=== PATIENT | male | born 1965 | race Caucasian/White ===

== ENCOUNTER → 2018-03-16 16:12 | Outpatient (CLI) | payer OTHER, SELFPAY ==
[2018-03-16 20:13] LABS: Urine N gonorrhoeae NOT DETECTED
[2018-03-16 21:26] LABS: Urine Chlamydia NOT DETECTED
== END ==
PROVIDERS: PCP Student in an Organized Health Care Education/Training Program; Visit Provider Physician Assistant
DX: R36.1 Hematospermia (principal)
CPT/HCPCS: 87491; 87591

== ENCOUNTER → 2018-04-07 07:10 | Outpatient (CLI) | payer OTHER, SELFPAY ==
[2018-04-07 08:44] LABS: Add Manual Diff / Slide Review NO; Basophils Percent Auto 0.8 % (0-2); Eosinophils Percent Auto 1.7 % (2-4); Hematocrit 40.1 % (41-53); Hemoglobin 13.8 g/dL (13.5-17.5); Lymphocytes Percent Auto 33.8 % (25-40); Mean Corpuscular HGB Conc 34.4 % (30-36); Mean Corpuscular Hemoglobin 31.2 PG (26-34); Mean Corpuscular Volume 90.9 fL (80-100); Monocytes Percent Auto 7.8 % (3-14); Neutrophils Absolute Auto 3400 /uL (3000-5900); Neutrophils Percent Auto 55.9 % (50-75); Platelet Count 259 X10^3/uL (150-400); Red Blood Cell Count 4.41 X10^6/uL (4.5-5.9); Red Cell Distribution Width 12.9 % (11.6-14.8); White Blood Cell Count 6.2 X10^3/uL (4.5-11.0)
[2018-04-07 09:57] LABS: Cholesterol 165 mg/dL (140-199); HDL Cholesterol 48 mg/dL (40-60); LDL Cholesterol Calculated 107 mg/dL (<100); Triglycerides 51 mg/dL (35-150)
[2018-04-07 10:06] LABS: Vitamin D 25 Hydroxy (D3) 43.4 ng/mL (30.0-100.0)
[2018-04-07 10:22] LABS: TSH w/ Reflex to FT4 2.61 uIU/mL (0.47-4.68)
== END ==
PROVIDERS: PCP Student in an Organized Health Care Education/Training Program; Visit Provider Student in an Organized Health Care Education/Training Program
DX: R36.1 Hematospermia (principal); Z13.220 Encounter for screening for lipoid disorders; E55.9 Vitamin D deficiency, unspecified
CPT/HCPCS: 36415; 80061; 82306; 84153; 84443; 85025

== ENCOUNTER 2018-07-31 07:44 | Day surgery (SDC) | payer OTHER, SELFPAY ==
--- NOTE | 2018-07-31 | PATH_ITS ---
[facility] Accession Number: [id number] . 01 Material submitted: . SIGMOID POLYP AT 25CM . 02 Diagnosis: Biopsy, Polyp Sigmoid Colon at 25 cm: Hyperplastic polyp. MRV/08/01/2018 . 02 Electronically signed: . Caesar Mcmahon MD, Pathologist NPI- [id number] . 01 Gross description: . Received one formalin-filled container labeled with the patient's name and labeled sigmoid polyp at 25 cm. The specimen consists of a 0.5 cm portion of tissue, entirely submitted in one cassette. ([id number]) /FRR . 02 Pathologist provided ICD-10: K63.5 . 02 CPT . 881001 Performed at: 01 [facility] [address] [id number] MD Elliott Mart MD Phone: [phone] Performed at: 02 [facility] [address] [place], [place] [id number] MD Magaly Perez MD Phone: [phone]
[2018-07-31 08:29] VITALS: BP 122/83; PULSE 74; RESP 15; TEMP 36.6; O2SAT 98; BMI 28.5
[2018-07-31] MEDS: SODIUM CHLORIDE 0.9% 1,000 ML 200 ML IV (08:38)
--- NOTE | 2018-07-31 09:31 | PM.HP.1 ---
History of Present Illness Date Patient Seen: 07/31/18 Time Patient Seen: 09:31 Chief complaint: 83138 SCREENING COLONOSCOPY Narrative: 52-year-old male who presents for colorectal screening. He has no new recent gastrointestinal symptoms. Denies any nausea, vomiting, abdominal pain, loss of appetite, unexplained weight loss, change in bowel habits, diarrhea, constipation, melena, hematochezia, and bright red blood per rectum. Patient History Medical History Plantar warts (Resolved 1989) Skin cancer (Resolved 2011) Hemorrhoid (Acute) Skin cancer (Acute) Plantar warts (Inactive ~1989) Surgical History Hx of shoulder surgery (Resolved 2015) History of colonoscopy (Acute) History of placement of ear tubes (Acute) Family History Father No problems noted. Mother No problems noted. Social History household members: spouse Smoking Status: Never smoker alcohol intake: current Family & Social History Family History Father No problems noted. Mother No problems noted. Social History: household members spouse Tobacco & Substance use: Smoking Status Never smoker alcohol intake current Meds Home Medications Medication Instructions Recorded Confirmed Type glucosamine HCl 1 tab PO DAILY 03/24/18 07/31/18 History ibuprofen 600 mg tablet 600 mg PO DAILY PRN tab 03/24/18 07/31/18 History lactobacillus combination no.8 1 cap PO DAILY 03/24/18 07/31/18 History multivitamin tablet 1 tab PO DAILY 03/24/18 07/31/18 History sildenafil 25 mg PO DAILY PRN 07/31/18 07/31/18 History Allergies Allergy/AdvReac Type Severity Reaction Status Date / Time No Known Drug Allergies Allergy Verified 07/31/18 08:25 Review of Systems Review of Systems All systems reviewed & are unremarkable except as noted in HPI and below Exam Vital Signs (past 8 hours): - 07/31/18 08:29 Temperature 97.8 F Pulse Rate 74 Respiratory Rate 15 Blood Pressure 122/83 Pulse Oximetry 98 Oxygen Delivery Method Room Air Narrative Exam Narrative: Well-nourished well-developed male in no acute distress. Alert oriented x3. Sclera nonicteric Regular rate rhythm No wheezes Abdomen soft, nondistended, nontender Extremities show no clubbing or cyanosis Objective Labs Labs: No recent laboratory or radiographic studies for review Assessment & Plan Assessment & Plan narrative: 52-year-old male requiring colorectal screening by age criteria. He actually had a colonoscopy 10 years ago for rectal bleeding which was normal other than some minimal hemorrhoid disease requiring no further intervention. Colonoscopy is once again recommended today. Technical details of the procedure were discussed. Risks, benefits, alternatives were explained. Risks including but not limited to sedation, aspiration, bleeding, pain, missed lesion, incomplete examination, need for further radiographic studies, colonic perforation, need for major abdominal surgery, and all attendant risks of major surgery were explained in detail. All questions were answered to his satisfaction, and he voiced understanding. Consent was placed on the chart. We will proceed as above.
--- NOTE | 2018-07-31 09:34 | PM.PREOP ---
Pre-operative Note Interval Note History & Physical reviewed/Exam performed by Physician: Yes Changes to H&P: No H&P completed within 30 days and has changed as indicated here:: Patient seen and examined. History and physical examination placed on the chart today. Obviously, there have been no changes in the last 15 min. Proceed with colonoscopy today as planned. ASA Class (for procedural sedation): I
[2018-07-31] MEDS: fentaNYL 250 MCG/5 ML INJ IV (09:52)
[2018-07-31] MEDS: MIDAZOLAM 5 MG/5 ML VIAL IV (09:53)
--- NOTE | 2018-07-31 10:02 | PM.OP.ENDO ---
Operative Date/Time/Diagnoses Date of procedure: 07/31/18 Time of procedure: 10:02 Pre-op diagnosis: Colorectal screening Post-op diagnosis: other (Diverticulosis and sigmoid colon polyp) Procedure & Clinicians Study performed: 1. Sedation per surgeon 2. Colonoscopy with cold forceps polypectomy Same procedure as scheduled: Yes Indications: 52-year-old male who presents for colorectal screening. Colonoscopy is currently recommended. Surgeon: Devonte Calderon Procedure Notes SCOAP/Timeout: Yes Procedure in detail: After obtaining informed consent, the patient was brought to the GI suite and placed in the left lateral decubitus position on the examination table. After placement of appropriate monitors, the patient was given incremental doses of Versed and Fentanyl until an appropriate level of sedation was achieved. A time out was held per SCOAP protocol. A digital rectal examination was performed and did not reveal any masses or obstructing lesions. The colonoscope was gently passed into the patient's anus and the entire colon navigated to the level of the cecum with minimal difficulty. Terminal ileum was intubated and noted to be grossly normal. Once in the cecum, the scope was withdrawn being sure to go before and beyond all mucosal folds and prominences and get an excellent examination. The findings are noted above. At the level of the rectal vault, the scope was retroflexed and the internal anal canal was examined. The scope was straightened and air aspirated from the colon. The instrument was removed from the patient's body and the procedure was concluded. The patient was allowed to awaken from sedation without difficulty and taken to the post-anesthesia care unit in good condition. Scope withdrawal time: 12:28 min Sedation minutes: 22 Findings: diverticulosis and polyp Specimen(s): other (Sigmoid colon polyp at 25 cm) Complications: none Recommendations: Colonscopy in 5 years, High fiber diet and Will call with biopsy results Follow up: as needed Disposition: PACU
[2018-07-31 10:06] VITALS: BP 122/83; PULSE 64; RESP 14; TEMP 36.6; O2SAT 98
[2018-07-31 10:11] VITALS: BP 123/78; PULSE 76; RESP 12; O2SAT 97
[2018-07-31 10:16] VITALS: BP 116/77; PULSE 60; RESP 10; O2SAT 98
[2018-07-31 10:34] VITALS: BP 106/71; PULSE 62; RESP 15; TEMP 36.3; O2SAT 98
== END 2018-07-31 10:45 | disposition home or self-care (01) ==
PROVIDERS: PCP Student in an Organized Health Care Education/Training Program; Visit Provider Surgery
PROC: 0DJD8ZZ Inspection of Lower Intestinal Tract, Via Natural or Artificial Opening Endoscopic (ICD-10-PCS; CPT 45378; principal; 2018-07-31 09:45)
DX: Z12.11 Encounter for screening for malignant neoplasm of colon (principal); K57.30 Diverticulosis of large intestine without perforation or abscess without bleeding; D12.5 Benign neoplasm of sigmoid colon; K63.5 Polyp of colon
CPT/HCPCS: 45380; 99152; J2250; J3010

== ENCOUNTER → 2019-02-23 07:06 | Outpatient (CLI) | payer OTHER, SELFPAY ==
[2019-02-23 08:01] LABS: BUN Creatinine Ratio 18.9 (6-22); Blood Urea Nitrogen 17 mg/dL (9-20); Calcium 9.8 mg/dL (8.4-10.2); Carbon Dioxide 30 mmol/L (22-32); Chloride 102 mmol/L (98-107); Cholesterol 171 mg/dL (140-199); Estimated Glomerular Filt Rate > 60.0 mL/min (>60); Glucose 94 mg/dL (70-100); HDL Cholesterol 52 mg/dL (40-60); HEMOLYSIS < 15 (0-50); LDL Cholesterol Calculated 99 mg/dL (<100); Potassium 4.5 mmol/L (3.4-5.1); Sodium 138 mmol/L (137-145); Triglycerides 101 mg/dL (35-150)
== END ==
PROVIDERS: PCP Student in an Organized Health Care Education/Training Program; Visit Provider Student in an Organized Health Care Education/Training Program
DX: E78.2 Mixed hyperlipidemia (principal); Z79.1 Long term (current) use of non-steroidal anti-inflammatories (NSAID)
CPT/HCPCS: 36415; 80048; 80061

== ENCOUNTER 2023-07-15 13:53 | Emergency (ER) | payer OTHER, SELFPAY ==
[2023-07-15] VITALS (7 sets, daily range): BP systolic 152–198; BP diastolic 92–99; PULSE 62–75; RESP 16–33; TEMP 36.6; O2SAT 95–99; BMI 29.8
--- NOTE | 2023-07-15 14:10 | DI.CT.S_ITS ---
PROCEDURE: CT HEAD/BRAIN WO CON INDICATIONS: fall with head injury TECHNIQUE: Noncontrast 4.5 mm thick angled axial sections acquired from the foramen magnum to the vertex, with coronal and sagittal reformats. For radiation dose reduction, the following was used: automated exposure control, adjustment of mA and/or kV according to patient size. COMPARISON: [facility], CT, CT CERVICAL SPINE WO CON, 07/15/2023, 14:39. FINDINGS: Image quality: Mild streak artifact can be seen through the skull base. CSF spaces: Basal cisterns are patent. No extra-axial fluid collections. Ventricles are normal in size and shape. Brain: No midline shift. No intracranial masses or hemorrhage. Willoughby-white matter interface is normal. Skull and face: Calvarium and visualized facial bones are intact, without suspicious lesions. Sinuses: Visualized sinuses and mastoids are clear. IMPRESSION: No acute intracranial hemorrhage is seen. No acute intracranial process is seen. Dictated by: Berlin Ortega M.D. on 07/15/2023 at 13:46 Approved by: Berlin Ortega M.D. on 07/15/2023 at 13:47
--- NOTE | 2023-07-15 14:10 | DI.CT.S_ITS ---
PROCEDURE: CT CERVICAL SPINE WO CON INDICATIONS: fall with head injury TECHNIQUE: Noncontrast 3 mm thick sections acquired from the skull base to the T4 level. Sagittal and coronal reformats were then constructed. For radiation dose reduction, the following was used: automated exposure control, adjustment of mA and/or kV according to patient size. COMPARISON: [facility], CT, CT HEAD/BRAIN WO CON, 07/15/2023, 14:39. FINDINGS: Image quality: This examination is somewhat limited by quantum mottle artifact. Bones: No fractures or dislocations. Visualized superior ribs are intact. Focal degenerative change is seen involving the C1-C2 interface anteriorly. There is moderate disc space narrowing seen at C5-C6, with associated vacuum disc phenomenon. Mild posteriorly directed endplate osteophytes can be seen at C5-C6. Several levels of bridging anterior osteophytes can be seen, from C3 through C7. There is overall straightening of the normal cervical lordosis. Soft tissues: Prevertebral soft tissues are normal in thickness. No paravertebral hematomas. No apical pneumothoraces. IMPRESSION: Negative for acute cervical spine fracture. Cervical spine degenerative changes are seen, which are overall worst at C5-C6. Dictated by: Berlin Ortega M.D. on 07/15/2023 at 13:47 Approved by: Berlin Ortega M.D. on 07/15/2023 at 13:49
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
--- NOTE | 2023-07-15 14:32 | DI.MRI.S_ITS ---
PROCEDURE: MR CERVICAL SPINE WO CON INDICATIONS: fall with tingling bilateral arms TECHNIQUE: Noncontrast sagittal T1 spin echo and T2 fast spin echo, sagittal STIR, foraminal oblique sagittal T2 fast spin echo, and axial gradient echo or T2 fast spin echo through the cervical spine. COMPARISON: None. FINDINGS: Image quality: Excellent. Alignment and Curvature: There is normal bony alignment. Craniovertebral relationships are normal Bone Marrow: Marrow demonstrates normal overall signal. Spinal Cord: Visualized spinal cord has normal size and signal. No cerebellar tonsillar herniation. Paraspinous Soft Tissues: No paravertebral masses. Prevertebral soft tissues are normal in thickness. At the disc levels, there is disc space narrowing and posterior disc osteophyte complex in the mid cervical spine. Mild to moderate central stenosis C5-6 and mild central stenosis C6-7. Hypertrophic uncovertebral joint associated with severe bilateral foraminal stenosis C5-6 IMPRESSION: No evidence of fracture or ligamentous injury. Craniovertebral relationships are normal. Chronic degenerative disc disease and arthropathy in the mid cervical spine results in severe bilateral foraminal stenosis C5-6 Approved by: Marcus Tucker M.D. on 07/15/2023 at 14:42
== END 2023-07-15 16:20 | disposition home or self-care (01) ==
PROVIDERS: Emergency Provider Emergency Medicine; PCP Family Medicine
DX: S16.1XXA Strain of muscle, fascia and tendon at neck level, initial encounter (principal); S00.81XA Abrasion of other part of head, initial encounter; S09.90XA Unspecified injury of head, initial encounter; W17.89XA Other fall from one level to another, initial encounter
CPT/HCPCS: 70450; 72125; 72141; 99284

== ENCOUNTER → 2024-08-14 07:02 | Outpatient (CLI) | payer OTHER, SELFPAY ==
[2024-08-14 08:26] LABS: Add Manual Diff / Slide Review NO; Basophils Absolute Auto 0 /uL (0-100); Basophils Percent Auto 0.8 % (0-2); Eosinophils Absolute Auto 100 /uL (0-450); Eosinophils Percent Auto 1.6 % (2-4); Hematocrit 42.4 % (41-53); Hemoglobin 14.7 g/dL (13.5-17.5); Lymphocytes Absolute Auto 2200 /uL (1100-4500); Mean Corpuscular HGB Conc 34.6 % (30-36); Mean Corpuscular Hemoglobin 31.2 PG (26-34); Mean Corpuscular Volume 90.2 fL (80-100); Monocytes Absolute Auto 600 /uL (0-900); Monocytes Percent Auto 8.9 % (3-14); Neutrophils Absolute Auto 3400 /uL (1500-7000); Neutrophils Percent Auto 53.7 % (50-75); Platelet Count 291 X10^3/uL (150-400); Red Cell Distribution Width 13.2 % (11.6-14.8); White Blood Cell Count 6.4 X10^3/uL (4.5-11.0)
[2024-08-14 08:49] LABS: Hemoglobin A1C% w Est Avg Glu 4.8 % (4.0-6.0)
[2024-08-14 08:52] LABS: Alanine Aminotransferase 28 IU/L (<50); Albumin 4.5 g/dL (3.5-5.0); Alkaline Phosphatase 74 U/L (38-126); Aspartate Aminotransferase 29 IU/L (17-59); BUN Creatinine Ratio 17.3 (6-22); Bilirubin Total 0.6 mg/dL (0.2-1.3); Blood Urea Nitrogen 17 mg/dL (9-20); Calcium 9.9 mg/dL (8.4-10.2); Carbon Dioxide 28 mmol/L (22-32); Chloride 103 mmol/L (98-107); Cholesterol 203 mg/dL (140-199); Estimated Glomerular Filt Rate > 60 mL/min (>60); Globulin 2.2 g/dL (1.7-4.1); Glucose 89 mg/dL (70-100); HDL Cholesterol 56 mg/dL (40-60); HEMOLYSIS < 15 (0-50); LDL Cholesterol Calculated 128 mg/dL (<100); Potassium 5.3 mmol/L (3.4-5.1); Sodium 138 mmol/L (137-145); Total Protein 6.7 g/dL (6.3-8.2); Triglycerides 95 mg/dL (35-150)
[2024-08-14 09:19] LABS: Prostate Specific Antigen Scrn 0.607 ng/mL (0.1-4.0)
== END ==
LOC: LAB 07:03
PROVIDERS: PCP Family Medicine; Referring Provider Family Medicine; Visit Provider Family Medicine
DX: Z00.00 Encounter for general adult medical examination without abnormal findings (principal); Z13.220 Encounter for screening for lipoid disorders; Z12.5 Encounter for screening for malignant neoplasm of prostate; Z13.1 Encounter for screening for diabetes mellitus
CPT/HCPCS: 36415; 80053; 80061; 83036; 85025; G0103

== ENCOUNTER 2024-10-15 08:20 | Day surgery (SDC) | payer OTHER, SELFPAY ==
--- NOTE | 2024-10-15 08:30 | PM.OP.COLON ---
Operative Date/Time/Diagnoses Date of procedure: 10/15/24 Time of procedure: 09:25 Pre-op diagnosis: See indication and findings Post-op diagnosis: same Procedure & Clinicians Study performed: Colonoscopy Same procedure as scheduled: Yes Indications: Screening Surgeon: Larry Preciado Procedure Notes Procedure in detail: After informed consent was obtained the patient was placed in left lateral decubitus position. The video colonoscope was inserted into the rectum slowly advanced cecum. Preparation was good. On slow withdrawal mucosa was carefully examined. The scope was removed. The patient tolerated the procedure well. Blood loss none Complications none Sedation mac Findings 1. Scattered sigmoid diverticulosis 2. Otherwise negative colonoscopy to cecum Because of his history of adenomatous colon polyps he should have follow-up colonoscopy in 5 years
[2024-10-15 08:35] VITALS: BP 143/85; PULSE 63; RESP 16; TEMP 36.2; O2SAT 99
[2024-10-15] MEDS: LACTATED RINGERS 1,000 ML 42 ML IV (08:46)
--- NOTE | 2024-10-15 09:06 | PM.HP.IH.1 ---
History of Present Illness History of Present Illness Date Patient Seen: 10/15/24 Chief complaint: Screening Colonoscopy [facility] Medical History Skin cancer Hemorrhoid Skin cancer (2011) Plantar warts (~1989) Surgical History History of placement of ear tubes History of colonoscopy Hx of shoulder surgery (2015) Family History Father No problems noted. Mother No problems noted. Social History marital status: household members: spouse pets and animals: Yes education level: master's degree occupational status: employed current occupational exposures/hazards: No raya/mormon: Roman Catholic leisure activities: other ([employer] biking and boating) seatbelt use: always helmet use: Yes water heater temp set < 120 deg: Yes working smoke detector in home: Yes fire extinguisher in home: Yes carbon monox detector in home: Yes firearms in home: No do you feel safe at home: Yes Smoking Status: Never smoker quit status: quit date established (1987) alcohol intake: never substance use type: does not use during the past year weight has: remained stable well-balanced diet: daily or most days daily servings fruits/ve-4 caffeine: Yes (2 plus drinks) eating out: 1-3 times/week frequency: 3-4 times per week duration: > 90 minutes/day Meds Home Medications and Allergies Home Medications Medication Instructions Recorded Confirmed Type glucosamine HCl 1 tab PO DAILY 03/24/18 10/15/24 History ibuprofen 600 mg tablet 600 mg PO DAILY PRN Pain 03/24/18 10/15/24 History clonazepam 1 mg tablet 1 mg PO DAILY PRN Insomnia 08/02/24 10/15/24 History sildenafil 25 mg tablet 25 mg PO DAILY PRN sexual activity 08/02/24 10/15/24 Rx #20 tabs Allergies Allergy/AdvReac Type Severity Reaction Status Date / Time No Known Drug Allergies Allergy Verified 10/15/24 08:32 Exam Vital Signs (past 8 hours): - 10/15/24 08:35 Temperature 97.1 F L Pulse Rate 63 Respiratory Rate 16 Blood Pressure 143/85 H Pulse Oximetry 99 Oxygen Delivery Method Room Air Oxygen Delivery Method Room Air Narrative Exam Narrative: Oropharynx free of lesions Chest clear to auscultation percussion Cardiac exam reveals no S3 or murmur Assessment & Plan Assessment & Plan narrative: History of colon polyps need for follow-up colonoscopy at an interval of 5-6 years. Risks, benefits, alternatives have been explained. Time-Based Coding :: [TOTAL MINUTES] spent with patient and on the chart (including review of chart, obtaining history, exam, reviewing outside data, placing orders, documenting exam and treatment plan, and counseling patient) on [DATE]. 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
[2024-10-15 09:28] VITALS: BP 114/72; PULSE 61; RESP 12; TEMP 36.3; O2SAT 96
[2024-10-15 09:33] VITALS: BP 113/70; PULSE 61; RESP 15; O2SAT 90
[2024-10-15 09:39] VITALS: BP 119/76; PULSE 58; RESP 17; TEMP 36.8; O2SAT 93
[2024-10-15 09:45] VITALS: BP 117/83; PULSE 63; RESP 20; O2SAT 90
== END 2024-10-15 10:00 | disposition home or self-care (01) ==
PROVIDERS: PCP Family Medicine; Referring Provider Internal Medicine Gastroenterology; Visit Provider Internal Medicine Gastroenterology
PROC: 0DJD8ZZ Inspection of Lower Intestinal Tract, Via Natural or Artificial Opening Endoscopic (ICD-10-PCS; CPT 45378; principal; 2024-10-15 09:30)
DX: Z12.11 Encounter for screening for malignant neoplasm of colon (principal); K57.30 Diverticulosis of large intestine without perforation or abscess without bleeding
CPT/HCPCS: 45378; J2704

== ENCOUNTER → 2025-02-27 15:54 | Outpatient (CLI) | payer OTHER, SELFPAY ==
[2025-02-27 17:00] LABS: Cholesterol 197 mg/dL (140-199); HDL Cholesterol 66 mg/dL (40-60); Triglycerides 97 mg/dL (35-150)
== END ==
PROVIDERS: PCP Family Medicine; Referring Provider Family Medicine; Visit Provider Family Medicine
DX: R00.2 Palpitations (principal); R06.09 Other forms of dyspnea; E78.00 Pure hypercholesterolemia, unspecified
CPT/HCPCS: 36415; 80061

== ENCOUNTER → 2025-03-05 07:13 | Outpatient (CLI) | payer OTHER, SELFPAY ==
--- NOTE | 2025-03-05 20:49 | DI.NM.S_ITS ---
DATE OF SERVICE: 03/05/2025 PROCEDURE: Exercise treadmill stress test without imaging. ORDERING PROVIDER: Dr. Timothy Trotter. INDICATIONS: The patient is a 59-year-old male with intermittent dyspnea and palpitations. FINDINGS: 1. The patient was able to exercise for 12 minutes 23 seconds on a standard Manny protocol suggesting very good exercise capacity with an EMILY of -30%, achieving 12.8 METS. 2. He had a normal heart rate response to exercise, achieving a maximum heart rate of 173 BPM (106% of his predicted maximum). He had a mild hypertensive blood pressure response with a resting blood pressure of 136/92, increasing to a maximum blood pressure of 200/100. 3. He developed moderate exertional dyspnea without any anginal-type pain, although had a weird sensation in his left chest and epigastric area at 9 minutes of exercise that was brief and resolved by peak exercise. 4. His resting ECG shows sinus rhythm with normal ST segments. There are no significant ST-segment shifts or arrhythmias except rare isolated PVCs during stress. IMPRESSION: 1. Normal exercise treadmill stress test for ischemia. 2. Very good exercise capacity with a mild hypertensive blood pressure response and brief, atypical chest discomfort prior to a peak exercise. 3. There were rare isolated PVCs but no concerning arrhythmias. Helio Mcleod - ERLINDA/warren/AY doc#: [id number]/job#: [id number] dd: 03/05/2025 17:10:00 dt: 03/05/2025 17:35:00 DICTATING /COPIES TO: Octaviano Guallpa MD; Timothy Trotter M.D. COPIES MNE: JAVIER;
== END ==
PROVIDERS: PCP Family Medicine; Referring Provider Family Medicine; Visit Provider Family Medicine
DX: R06.09 Other forms of dyspnea (principal); R00.2 Palpitations
CPT/HCPCS: 93017

== ENCOUNTER → 2025-03-06 13:36 | Outpatient (CLI) | payer OTHER, SELFPAY | LOC: CAR 13:37 | PROVIDERS: PCP Family Medicine; Referring Provider Family Medicine; Visit Provider Family Medicine | DX: R00.2 Palpitations (principal); R06.02 Shortness of breath | CPT/HCPCS: 93246 ==

== ENCOUNTER → 2025-04-02 06:50 | Outpatient (CLI) | payer OTHER, SELFPAY ==
--- NOTE | 2025-04-02 06:50 | DI.ECHO.S_ITS ---
[facility] : : [address] : : [place] : : [id number] : : Phone: [phone] Echocardiogram Report + + :Name: EUFEMIA JIMENEZ Study Date: 04/02/2025 Height: 72 in : :[facility] ReadingLocation: Weight: 215 lb : : Gender: Male BSA: 2.2 m2 : :: 1965 Age: 59 yrs BP: 138/90 mmHg: :Reason For Study: RBBB : :Ordering Physician: MARINO, : :JAY Performed By: Kannan Felix : :Referring: JAY PICHARDO : + + Interpretation Summary Left ventricular wall thickness is mild-moderately increased. Left ventricular systolic function is normal. The ejection fraction is estimated to be 55-60%. There are no focal wall motion abnormalities. Grade I diastolic dysfunction with normal left atrial pressure. The right ventricle is normal in size and function. The right ventricular systolic pressure is estimated to be at least 20 mmHg based on an estimated right atrial pressure of 3 mm Hg. The left atrial size is normal. There is no significant valvular heart disease. The aortic root is normal size. Procedure: A two-dimensional transthoracic echocardiogram with color flow and Doppler was performed. The study quality was technically adequate. There is no prior echocardiogram noted for this patient. The patient was in normal sinus rhythm during the exam. The patient had occasional PVCs during the exam. Left Ventricle: The left ventricle is normal in size. Left ventricular wall thickness is mild-moderately increased. Left ventricular systolic function is normal. The ejection fraction is estimated to be 55-60%. There are no focal wall motion abnormalities. Grade I diastolic dysfunction with normal left atrial pressure. Right Ventricle: The right ventricle is normal in size and function. Atria: The left atrial size is normal. Right atrial size is normal. There is no Doppler evidence for an interatrial shunt. Mitral Valve: The mitral valve leaflets appear to open well. There is no mitral valve stenosis. There is trace mitral regurgitation. Aortic Valve: The aortic valve is trileaflet. The aortic valve opens well. There is no aortic valve stenosis. No aortic regurgitation is present. Tricuspid Valve: The tricuspid valve leaflets are thin and pliable. There is trace tricuspid regurgitation. The right ventricular systolic pressure is estimated to be at least 20 mmHg based on an estimated right atrial pressure of 3 mm Hg. Pulmonic Valve: The pulmonic valve is not well seen, but is grossly normal. There is a trace or physiologic amount of pulmonic regurgitation. There is no significant valvular heart disease. Great Vessels: The aortic root is normal size. The ascending aorta is normal in size. The aortic arch could not be visualized. The pulmonary artery is normal size. The IVC is of normal diameter and collapses greater than 50% with a sniff. This suggests a low right atrial pressure of 3 mm Hg. Pericardium/ Pleura There is no pericardial effusion. MMode/2D Measurements & Calculations LVIDd: 4.1 cm LVOT diam: 2.2 cm LVIDs: 2.4 cm Ao root diam: 3.3 cm FS: 42.7 % asc Aorta Diam: 3.7 cm IVSd: 1.4 cm LVPWd: 1.4 cm LV phan. diameter/BSA (cm/m^2): 1.9 LV sys. diameter/BSA (cm/m^2): 1.1 LA A2 area: 18.5 cm2 RA long axis: 5.1 cm LA A4 area: 20.2 cm2 RA area: 12.7 cm2 LA length (vol): 5.6 cm RA vol: 26.6 ml LA vol: 57.0 ml RA : 12.1 ml/m2 LA vol index: 26.0 ml/m2 IVC diam: 2.0 cm RVD1 (basal): 3.2 cm RVD2 (mid): 2.7 cm TAPSE: 2.1 cm Doppler Measurements & Calculations Ao V2 max: 149.2 cm/sec LVOT Max Abhinav: 135.8 cm/sec Ao V2 mean: 115.1 cm/sec LV V1 max P.4 mmHg Ao max P.9 mmHg LV V1 VTI: 23.7 cm Ao mean P.8 mmHg WILLY(I,D): 3.4 cm2 Ao V2 VTI: 25.3 cm WILLY(V,D): 3.3 cm2 sev ratio: 0.93 WILLY indexed to BSA (cm^2/m^2): 1.6 MV E max abhinav: 51.0 cm/sec TR max abhinav: 203.4 cm/sec MV A max abhinav: 73.2 cm/sec TR max P.6 mmHg MV E/A: 0.70 PA V2 max: 86.4 cm/sec MV dec time: 0.19 sec PA V2 mean: 59.3 cm/sec PA mean P.7 mmHg PA pr(Accel): 32.8 mmHg SVLVOT): 86.3 ml Reading Physician:12:35 PM
== END ==
LOC: ECHO 06:50
PROVIDERS: PCP Family Medicine; Referring Provider Family Medicine; Visit Provider Family Medicine
DX: R00.2 Palpitations (principal); R06.09 Other forms of dyspnea; I47.10 Supraventricular tachycardia, unspecified; I44.30 Unspecified atrioventricular block
CPT/HCPCS: 93306